=== PATIENT | female | born 1985 | race Caucasian/White ===

== ENCOUNTER 2023-01-31 10:30 | Outpatient (CLI) | payer OTHER ==
[2023-01-31 19:08] LABS: FOLLICLE STIMULATING HORMONE 4.53 mIU/mL
[2023-01-31 19:09] LABS: LUTEINIZING HORMONE 11.74 mIU/mL
== END 2023-01-31 10:45 | disposition home or self-care (01) ==
LOC: LAB.N 10:30
PROVIDERS: ATTEND Registered Nurse
DX: N92.4 Excessive bleeding in the premenopausal period (principal); N30.00 Acute cystitis without hematuria; Z31.62 Encounter for fertility preservation counseling
CPT/HCPCS: 36415; 82670; 83001; 83002; 84403